=== PATIENT | female | born 1985 | race Caucasian/White ===

== ENCOUNTER → 2019-04-06 14:23 | Outpatient (CLI) | payer OTHER, SELFPAY | PROVIDERS: Family Provider Advanced Practice Midwife | DX: Z23 Encounter for immunization (principal) | CPT/HCPCS: 90471; 90686 ==

== ENCOUNTER → 2019-07-01 10:25 | Outpatient (CLI) | payer OTHER, SELFPAY ==
[2019-07-01 11:14] LABS: Influenza A - CEPHEID Flu A NEGATIVE (NEGATIVE); Influenza B - CEPHEID Flu B NEGATIVE (NEGATIVE)
== END ==
PROVIDERS: Family Provider Advanced Practice Midwife; Visit Provider Nurse Practitioner
DX: R68.89 Other general symptoms and signs (principal); J02.9 Acute pharyngitis, unspecified
CPT/HCPCS: 87070; 87147; 87502

== ENCOUNTER → 2019-09-18 12:54 | Outpatient (CLI) | payer OTHER, SELFPAY ==
[2019-09-18 13:48] LABS: Influenza A - CEPHEID Flu A NEGATIVE (NEGATIVE); Influenza B - CEPHEID Flu B NEGATIVE (NEGATIVE)
[2019-09-25 23:02] LABS: COVID19 Sendout Not Detected (Not Detected)
== END ==
PROVIDERS: Family Provider Advanced Practice Midwife; Visit Provider Nurse Practitioner
DX: J22 Unspecified acute lower respiratory infection (principal)
CPT/HCPCS: 87502; 87635

== ENCOUNTER → 2019-09-26 17:10 | Outpatient (CLI) | payer OTHER, SELFPAY ==
[2019-09-26 17:29] LABS: Monotest Negative (Negative)
== END ==
PROVIDERS: Family Provider Advanced Practice Midwife; Referring Provider Physician Assistant; Visit Provider Physician Assistant
DX: R53.83 Other fatigue (principal)
CPT/HCPCS: 36415; 86318

== ENCOUNTER 2019-12-21 08:46 | Emergency (ER) | payer OTHER, SELFPAY ==
[2019-12-21 08:46] VITALS: BP 103/63; PULSE 88; RESP 14; TEMP 36.8; O2SAT 100; BMI 22.7
--- NOTE | 2019-12-21 08:52 | ED.GENADULT ---
HPI - General Adult General Chief complaint: Extremity Problem,Nontraumatic Stated complaint: inflamed right middle toe Time Seen by Provider: 12/21/19 08:51 Source: patient Mode of arrival: Ambulatory Limitations: no limitations History of Present Illness HPI narrative: 34-year-old female here for evaluation of a red/inflamed right 3rd/middle toe. She states that it has been going on for the past couple days. No fevers. No specific trauma. She has been ambulatory. No history of gout. Did outline it with a pen yesterday to see if the redness was spreading. Has not tried anything for the symptoms. Related Data Home Medications Medication Instructions Recorded Confirmed cholecalciferol (vitamin D3) PO 07/01/19 09/26/19 Previous Rx's Medication Instructions Recorded amoxicillin 875 mg-potassium 1 tab PO BID #20 tab 09/28/19 clavulanate 125 mg tablet Allergies Allergy/AdvReac Type Severity Reaction Status Date / Time No Known Drug Allergies Allergy Verified 09/26/19 16:46 Review of Systems Constitutional Constitutional: Denies fever(s) and Denies headache(s) ENT Ears, Nose, Mouth, and Throat: Denies headache(s) Musculoskeletal Comments: Right middle toe pain Integumentary/Breasts Comments: Redness to the right middle toe Neurologic Neurologic: Denies headache(s) and Denies sensory deficit Hematologic/Lymphatic Hematologic/Lymphatic: Denies easy bleeding and Denies easy bruising Patient History Medical History Psoriasis (Acute) Social History Smoking Status: Never smoker Smoking Status: Never smoker Exam Initial Vital Signs Initial Vital Signs: Vital Signs Temperature 98.3 F 12/21/19 08:46 Pulse Rate 88 12/21/19 08:46 Respiratory Rate 14 12/21/19 08:46 Blood Pressure 103/63 12/21/19 08:46 Pulse Oximetry 100 12/21/19 08:46 Const General: cooperative and comfortable Skin Other: Redness on the dorsum of the right 3rd toe. Extends from the MTP to the D IP joint. Neuro Sensory Exam: no sensory deficits noted Extrem Other: Does not seem to have any tenderness with movement of the MTP joint of the 3rd toe. Does have tenderness to palpation of the PIP joint. Course Orders Ordered: ED Orders 12/21/19 08:57 XR toe RT min 2V Stat 12/21/19 09:55 Basic Metabolic Panel Stat C-Reactive Protein Quant Stat Complete Blood Count AUTO DIFF Stat Erythrocyte Sedimentation Rate Stat Uric Acid Stat Vital Signs Vital signs: Vital Signs - 8 hr 12/21/19 08:46 Temperature 98.3 F Pulse Rate 88 Respiratory Rate 14 Blood Pressure 103/63 Pulse Oximetry 100 Medical Decision Making Lab Data Lab results reviewed: Yes I reviewed the patient's lab results. Result diagrams: 12/21/19 09:55 12/21/19 09:55 Labs: Lab Results 12/21/19 12/21/19 12/21/19 Range/Units 09:55 09:55 09:55 WBC 6.2 (4.5-11.0) X10^3/uL RBC 4.23 (4.0-5.2) X10^6/uL Hgb 13.6 (12.0-16.0) g/dL Hct 39.7 (36-46) % MCV 93.8 (80-100) fL MCH 32.1 (26-34) PG MCHC 34.2 (30-36) % RDW 13.6 (11.6-14.8) % Plt Count 286 (150-400) X10^3/uL Neut % (Auto) 56.2 (50-75) % Lymph % (Auto) 29.3 (25-40) % [place] % (Auto) 8.9 (3-14) % Eos % (Auto) 4.3 H (2-4) % Baso % (Auto) 1.3 (0-2) % Neut # (Auto) 3500 (6115-2907) /uL Lymph # (Auto) 1800 (3837-1937) /uL [place] # (Auto) 500 (0-900) /uL Eos # (Auto) 300 (0-450) /uL Baso # (Auto) 100 (0-100) /uL ESR 7 (0-20) MM/HR Sodium 138 (137-145) mmol/L Potassium 4.2 (3.4-5.1) mmol/L Chloride 104 (98-107) mmol/L Carbon Dioxide 26 (22-32) mmol/L BUN 11 (7-17) mg/dL Creatinine 0.57 (0.52-1.04) mg/dL Estimated GFR > 60.0 (>60) mL/min BUN/Creatinine Ratio 19.3 (6-22) Glucose 95 (70-100) mg/dL Uric Acid 3.0 (2.5-6.2) mg/dL Calcium 9.5 (8.4-10.2) mg/dL C-Reactive Protein < 0.5 (<1.0) mg/dL Imaging Data Extremity x-ray #1: Radiologist's Impression: [address] [address] XRay Report Signed Patient: Claudia Tenorio [facility]#: [id number] : 1985Acct:[id number] Age/Sex: 34 / FDate of Service: 12/21/19 Loc: ED Accession Number: [id number] Procedure: XR toe RT min 2V Ordering Provider: Dandre Ann D.O. PROCEDURE: XR TOE RT MIN 2V INDICATIONS: 3rd (middle toe) red and inflammed TECHNIQUE: 3 views of the third toe(s) acquired. COMPARISON: None. FINDINGS: Bones: No fractures or dislocations. No suspicious bony lesions. Soft tissues: No suspicious soft tissue densities but there is soft tissue swelling distally without underlying osteomyelitis identified. IMPRESSION: Soft tissue swelling distal third digit, without underlying fracture, foreign body or evidence of osteomyelitis. Dictated by: José Rose M.D. on 12/21/2019 at 8:20 Approved by: José Rose M.D. on 12/21/2019 at 8:22 Discharge Plan Departure Patient Disposition: Home Clinical Impression: Pain in toe of right foot Discharge Date/Time: 12/21/19 10:10 Instructions: How To Perform RICE (Rest, Ice, Compress, Elevate) Activity Restrictions/Additional Instructions: Use the ortho shoe as needed. You can contact the health clinical resource manager here at the hospital at [phone]. They can help you with establishing a primary provider. Return to the emergency department for any new or worsening symptoms Prescriptions: No Action cholecalciferol (vitamin D3) PO RF: 0 amoxicillin-pot clavulanate [Augmentin] 875-125 mg tablet 1 tab PO BID Qty: 20 RF: 0
--- NOTE | 2019-12-21 08:57 | DI.RAD.S_ITS ---
PROCEDURE: XR TOE RT MIN 2V INDICATIONS: 3rd (middle toe) red and inflammed TECHNIQUE: 3 views of the third toe(s) acquired. COMPARISON: None. FINDINGS: Bones: No fractures or dislocations. No suspicious bony lesions. Soft tissues: No suspicious soft tissue densities but there is soft tissue swelling distally without underlying osteomyelitis identified. IMPRESSION: Soft tissue swelling distal third digit, without underlying fracture, foreign body or evidence of osteomyelitis. Dictated by: José Rose M.D. on 12/21/2019 at 8:20 Approved by: José Rose M.D. on 12/21/2019 at 8:22
[2019-12-21 10:10] LABS: Add Manual Diff / Slide Review NO; Basophils Absolute Auto 100 /uL (0-100); Basophils Percent Auto 1.3 % (0-2); Eosinophils Absolute Auto 300 /uL (0-450); Eosinophils Percent Auto 4.3 % (2-4); Hematocrit 39.7 % (36-46); Hemoglobin 13.6 g/dL (12.0-16.0); Lymphocytes Absolute Auto 1800 /uL (1100-4500); Lymphocytes Percent Auto 29.3 % (25-40); Mean Corpuscular HGB Conc 34.2 % (30-36); Mean Corpuscular Hemoglobin 32.1 PG (26-34); Mean Corpuscular Volume 93.8 fL (80-100); Monocytes Absolute Auto 500 /uL (0-900); Monocytes Percent Auto 8.9 % (3-14); Neutrophils Absolute Auto 3500 /uL (1500-7000); Neutrophils Percent Auto 56.2 % (50-75); Platelet Count 286 X10^3/uL (150-400); Red Blood Cell Count 4.23 X10^6/uL (4.0-5.2); Red Cell Distribution Width 13.6 % (11.6-14.8); White Blood Cell Count 6.2 X10^3/uL (4.5-11.0)
[2019-12-21 10:25] LABS: BUN Creatinine Ratio 19.3 (6-22); Blood Urea Nitrogen 11 mg/dL (7-17); Calcium 9.5 mg/dL (8.4-10.2); Carbon Dioxide 26 mmol/L (22-32); Chloride 104 mmol/L (98-107); Estimated Glomerular Filt Rate > 60.0 mL/min (>60); Glucose 95 mg/dL (70-100); HEMOLYSIS < 15 (0-50); Potassium 4.2 mmol/L (3.4-5.1); Sodium 138 mmol/L (137-145)
[2019-12-21 10:30] LABS: C-Reactive Protein Quant < 0.5 mg/dL (<1.0)
[2019-12-21 10:43] LABS: Erythrocyte Sedimentation Rate 7 MM/HR (0-20)
--- NOTE | 2019-12-21 13:22 | PC.NURSE ---
Pt given copy of her labs per Dr Ann
== END 2019-12-21 10:10 | disposition home or self-care (01) ==
PROVIDERS: Emergency Provider Emergency Medicine; Family Provider Advanced Practice Midwife
DX: M79.671 Pain in right foot (principal)
CPT/HCPCS: 36415; 73660; 80048; 84550; 85025; 85651; 86140; 99284

== ENCOUNTER → 2020-01-26 07:36 | Outpatient (CLI) | payer OTHER, SELFPAY ==
[2020-01-26 08:29] LABS: Cholesterol 182 mg/dL (140-199); HDL Cholesterol 42 mg/dL (40-60); LDL Cholesterol Calculated 128 mg/dL (<100); Triglycerides 58 mg/dL (35-150)
[2020-01-26 08:33] LABS: Hemoglobin A1C% w Est Avg Glu 5.1 % (4.0-6.0)
[2020-01-26 08:49] LABS: Vitamin D 25 Hydroxy (D3) 46.8 ng/mL (30.0-100.0)
[2020-01-26 09:04] LABS: TSH w/ Reflex to FT4 0.78 uIU/mL (0.47-4.68)
[2020-01-27 07:09] LABS: Insulin Level Total 6.2 uIU/mL (2.6-24.9)
== END ==
PROVIDERS: Family Provider Advanced Practice Midwife; Referring Provider Registered Nurse Diabetes Educator; Visit Provider Registered Nurse Diabetes Educator
DX: Z13.220 Encounter for screening for lipoid disorders (principal); Z13.29 Encounter for screening for other suspected endocrine disorder; Z76.89 Persons encountering health services in other specified circumstances; Z86.32 Personal history of gestational diabetes
CPT/HCPCS: 36415; 80061; 82306; 83036; 83525; 84443

== ENCOUNTER → 2020-03-17 16:40 | Outpatient (CLI) | payer OTHER, SELFPAY ==
[2020-03-17 18:06] LABS: Add Manual Diff / Slide Review NO; Basophils Absolute Auto 100 /uL (0-100); Basophils Percent Auto 1.3 % (0-2); Eosinophils Absolute Auto 300 /uL (0-450); Hematocrit 39.2 % (36-46); Hemoglobin 13.3 g/dL (12.0-16.0); Lymphocytes Absolute Auto 2500 /uL (1100-4500); Lymphocytes Percent Auto 38.6 % (25-40); Mean Corpuscular Hemoglobin 31.9 PG (26-34); Mean Corpuscular Volume 93.9 fL (80-100); Monocytes Absolute Auto 400 /uL (0-900); Monocytes Percent Auto 6.7 % (3-14); Neutrophils Absolute Auto 3300 /uL (1500-7000); Neutrophils Percent Auto 49.4 % (50-75); Platelet Count 308 X10^3/uL (150-400); Red Blood Cell Count 4.18 X10^6/uL (4.0-5.2); White Blood Cell Count 6.6 X10^3/uL (4.5-11.0)
[2020-03-17 18:15] LABS: Alanine Aminotransferase 17 IU/L (<35); Albumin 4.7 g/dL (3.5-5.0); Albumin Globulin Ratio 1.5 (1.0-2.8); Alkaline Phosphatase 44 U/L (38-126); Aspartate Aminotransferase 22 IU/L (14-36); BUN Creatinine Ratio 16.4 (6-22); Bilirubin Total 0.6 mg/dL (0.2-1.3); Blood Urea Nitrogen 10 mg/dL (7-17); Calcium 9.6 mg/dL (8.4-10.2); Carbon Dioxide 29 mmol/L (22-32); Chloride 100 mmol/L (98-107); Estimated Glomerular Filt Rate > 60.0 mL/min (>60); Globulin 3.2 g/dL (1.7-4.1); Glucose 83 mg/dL (70-100); HEMOLYSIS < 15 (0-50); Potassium 5.2 mmol/L (3.4-5.1); Sodium 138 mmol/L (137-145); Total Protein 7.9 g/dL (6.3-8.2)
[2020-03-17 18:33] LABS: Prolactin 7.6 ng/mL (3.0-18.6)
[2020-03-17 18:42] LABS: Follicle Stimulating Hormone 7.42 mIU/mL; Luteinizing Hormone 2.55 mIU/mL
[2020-03-17 18:56] LABS: TSH w/ Reflex to FT4 0.46 uIU/mL (0.47-4.68)
[2020-03-17 19:41] LABS: Appearance Urine UA CLEAR; Bilirubin Urine UA NEGATIVE (NEGATIVE); Color Urine UA YELLOW; Glucose Urine UA NEGATIVE (Negative); Ketones Urine UA 1+ (NEGATIVE); Leukocyte Esterase Urine UA NEGATIVE (NEGATIVE); Nitrite Urine UA NEGATIVE (Negative); Occult Blood Urine UA 3+ (Negative); Protein Urine UA NEGATIVE (Negative); Urobilinogen Urine UA 0.2 E.U./dL (0.2); pH Urine UA 6.5 (4.5-8.0)
[2020-03-17 19:42] LABS: Bacteria Urine None Seen
[2020-03-17 19:53] LABS: Culture Indicated Urine Cult Not Indicated; RBC Urine 1-5/HPF (0-5/HPF); Squamous Epithelial Cell Urine 0-1 /HPF (0-5/HPF); WBC Urine 0-1/HPF (0-5/HPF)
[2020-03-17 19:56] LABS: Free T4, Direct Thyroxine 1.66 ng/dL (0.78-2.19)
== END ==
PROVIDERS: Family Provider Advanced Practice Midwife; PCP Registered Nurse Diabetes Educator; Referring Provider Registered Nurse; Visit Provider Registered Nurse
DX: R10.2 Pelvic and perineal pain (principal); Z84.2 Family history of other diseases of the genitourinary system
CPT/HCPCS: 36415; 80053; 81003; 81015; 83001; 83002; 84146; 84439; 84443; 85025

== ENCOUNTER 2020-03-20 13:28 | Emergency (ER) | payer OTHER, SELFPAY ==
[2020-03-20] VITALS (13 sets, daily range): BP systolic 115–147; BP diastolic 76–92; PULSE 71–115; RESP 6–22; TEMP 37.1; O2SAT 93–100; BMI 22.5
[2020-03-20 14:00] LABS: Add Manual Diff / Slide Review NO; Basophils Absolute Auto 100 /uL (0-100); Basophils Percent Auto 1.2 % (0-2); Eosinophils Absolute Auto 200 /uL (0-450); Eosinophils Percent Auto 2.3 % (2-4); Hemoglobin 13.8 g/dL (12.0-16.0); Lymphocytes Absolute Auto 2200 /uL (1100-4500); Lymphocytes Percent Auto 29.8 % (25-40); Mean Corpuscular HGB Conc 33.6 % (30-36); Mean Corpuscular Hemoglobin 31.6 PG (26-34); Mean Corpuscular Volume 94.1 fL (80-100); Monocytes Absolute Auto 400 /uL (0-900); Monocytes Percent Auto 6.1 % (3-14); Neutrophils Absolute Auto 4400 /uL (1500-7000); Neutrophils Percent Auto 60.6 % (50-75); Platelet Count 318 X10^3/uL (150-400); Red Blood Cell Count 4.36 X10^6/uL (4.0-5.2); Red Cell Distribution Width 12.7 % (11.6-14.8); White Blood Cell Count 7.2 X10^3/uL (4.5-11.0)
[2020-03-20 14:06] LABS: INR 1.2 (0.9-1.3); Prothrombin Time 13.3 SECONDS (10.1-12.7)
[2020-03-20 14:09] LABS: PTT Partial Thromboplastin Tim 33 SECONDS (26.4-36.2)
[2020-03-20 14:10] LABS: Alanine Aminotransferase 19 IU/L (<35); Albumin 4.9 g/dL (3.5-5.0); Albumin Globulin Ratio 1.3 (1.0-2.8); Alkaline Phosphatase 42 U/L (38-126); Aspartate Aminotransferase 24 IU/L (14-36); BUN Creatinine Ratio 13.1 (6-22); Bilirubin Total 0.5 mg/dL (0.2-1.3); Blood Urea Nitrogen 11 mg/dL (7-17); Carbon Dioxide 28 mmol/L (22-32); Chloride 104 mmol/L (98-107); Estimated Glomerular Filt Rate > 60.0 mL/min (>60); Globulin 3.7 g/dL (1.7-4.1); Glucose 104 mg/dL (70-100); HEMOLYSIS < 15 (0-50); Lipase 104 U/L (23-300); Potassium 3.7 mmol/L (3.4-5.1); Sodium 142 mmol/L (137-145); Total Protein 8.6 g/dL (6.3-8.2)
[2020-03-20 14:20] LABS: Bacteria Urine None Seen; RBC Urine None Seen (0-5/HPF)
[2020-03-20 14:35] LABS: Culture Indicated Urine Cult Not Indicated; Mucus Urine 1+ (Negative); Squamous Epithelial Cell Urine 0-1 /HPF (0-5/HPF); WBC Urine 0-1/HPF (0-5/HPF)
--- NOTE | 2020-03-20 15:20 | ED.ABDPAIN ---
HPI - Abdominal Pain General Chief Complaint: Abdominal Pain Stated Complaint: Left Abd Pain Time Seen by Provider: 03/20/20 15:09 Source: patient Mode of arrival: Ambulatory Limitations: no limitations History of Present Illness HPI narrative: The patient describes left lower abdomen suprapubic abdominal discomfort. She feels like she is expanding. She is uncomfortable. Her appetite is normal. She has no nausea, vomiting, diarrhea or constipation. She denies dysuria hematuria. She is drinking adequate fluids, she has normal urine output. She has an IUD in place x3 years. She developed symptoms about 3 weeks ago after last menstrual cycle, the abdominal discomfort seems to be expanding since then. She has no vaginal discharge. She does have mild discomfort with intercourse, but this is been going on since the IUD was placed. She has no associated back pain. She has no URI symptoms. She has no chest discomfort, cough or dyspnea. She has no fever. Related Data Home Medications Medication Instructions Recorded Confirmed cholecalciferol (vitamin D3) PO 07/01/19 03/17/20 copper 380 square mm intrauterine INTRAUTERINE 01/05/20 03/17/20 device Previous Rx's Medication Instructions Recorded calcipotriene 0.005 % topical cream 1 applictn TOP BID #60 gram 01/05/20 clobetasol 0.05 % scalp solution 1 applictn TOP BID #50 ml 01/05/20 Allergies Allergy/AdvReac Type Severity Reaction Status Date / Time No Known Drug Allergies Allergy Verified 03/17/20 15:51 Review of Systems Review of Systems ROS Unobtainable: All systems reviewed & are unremarkable except as noted in HPI and below Constitutional Constitutional: Denies chills, Denies fever(s), Denies headache(s), Denies lethargy and Denies weakness ENT Ears, Nose, Mouth, and Throat: Denies headache(s) Cardiovascular Cardiovascular: Denies chest pain, Denies irregular heart rhythm, Denies lightheadedness and Denies dyspnea Respiratory Respiratory: Denies cough, Denies dyspnea and Denies wheezing Gastrointestinal Gastrointestinal: Reports as per HPI Genitourinary Genitourinary: Reports as per HPI and Denies dysuria Genitourinary: Reports as per HPI and Denies dysuria Musculoskeletal Musculoskeletal: Denies back pain Integumentary/Breasts Skin/Breast: Denies pruritus, Denies erythema and Denies rash Neurologic Neurologic: Denies headache(s) and Denies weakness Allergic/Immunologic Allergic/Immunologic: Denies wheezing Patient History Medical History (Updated 03/20/20 @ 17:59 by Franco Tirado MD) History of gestational diabetes (Acute) IUD (intrauterine device) in place (Acute) Psoriasis (Acute) Social History Smoking Status: Never smoker alcohol intake: current Smoking Status: Never smoker alcohol intake frequency: 0-2 drinks per day Substance Use Type: does not use Exam Initial Vital Signs Initial Vital Signs: Vital Signs Temperature 98.8 F 03/20/20 13:33 Pulse Rate 105 H 03/20/20 13:33 Respiratory Rate 16 03/20/20 13:33 Blood Pressure 147/92 H 03/20/20 13:33 Pulse Oximetry 100 03/20/20 13:33 Const General: cooperative and well developed Nutritional Appearance: well nourished Eyes Sclera: sclerae normal (No icterus) Resp Auscultation: clear to auscultation bilaterally Cardio Rate: regular rate Rhythm: regular rhythm Heart Sounds: S1 normal, S2 normal, no click, no gallops, no murmurs and no rubs Pulses: normal peripheral pulses GI Other: Mild LLQ and suprapubic discomfort. No masses. No distention. Normal bowel sounds. Back/Spine/Pelvis Back: No CVA tenderness Skin General: no rashes or lesions noted and No petechiae Neuro General: patient alert, patient oriented x3, gait normal and no focal motor deficits Speech: speech normal Extrem General: full ROM, no clubbing, cyanosis or edema, no pedal edema and no calf tenderness Psych Appearance: grossly normal Mental Status: mental status grossly normal Course Course Course Narrative: On repeat evaluation the patient has ongoing, vague LLQ pain. Lab evaluation and pelvic ultrasound are benign and reassuring. I discussed these findings with the patient. We discussed an abdominal/pelvis CT. She has decided to not proceed with that evaluation. Instead I am recommending a high-fiber high fluid diet, and follow-up with her doctor in about 2 weeks. Orders Ordered: ED Orders 03/20/20 13:45 Complete Blood Count AUTO DIFF Stat Comprehensive Metabolic Panel Stat Lipase Stat Partial Thromboplastin Time Stat Prothrombin Time INR Stat 03/20/20 14:11 Urine Microscopic Stat 03/20/20 15:29 US pelvic complete Stat Discontinued Medications Ketorolac Tromethamine (Toradol) 30 mg IV NOW ONE Stop: 03/20/20 15:29 Last Admin: 03/20/20 15:32 Dose: 30 mg Documented by: KATHE Vital Signs Vital signs: Vital Signs - 8 hr 03/20/20 13:33 03/20/20 13:41 03/20/20 13:49 Temperature 98.8 F 98.8 F Pulse Rate 105 H 115 H 113 H Respiratory Rate 16 16 Blood Pressure 147/92 H 115/78 Pulse Oximetry 100 99 100 03/20/20 14:00 03/20/20 14:30 03/20/20 15:00 Temperature Pulse Rate 97 H 90 87 Respiratory Rate 10 L 14 17 Blood Pressure 133/88 124/76 Pulse Oximetry 100 99 99 03/20/20 15:01 03/20/20 15:30 03/20/20 16:01 Temperature Pulse Rate 88 82 79 Respiratory Rate 6 L 6 L Blood Pressure 126/80 127/82 Pulse Oximetry 99 98 93 03/20/20 16:30 03/20/20 17:00 03/20/20 17:30 Temperature Pulse Rate 89 91 H 71 Respiratory Rate 19 20 17 Blood Pressure Pulse Oximetry 99 98 99 03/20/20 17:31 Temperature Pulse Rate 83 Respiratory Rate 22 Blood Pressure 128/78 Pulse Oximetry 99 MDM - Abdominal Pain Lab Data Result diagrams: 03/20/20 13:45 03/20/20 13:45 Labs: Lab Results 03/20/20 03/20/20 03/20/20 Range/Units 13:45 13:45 13:45 WBC 7.2 (4.5-11.0) X10^3/uL RBC 4.36 (4.0-5.2) X10^6/uL Hgb 13.8 (12.0-16.0) g/dL Hct 41.0 (36-46) % MCV 94.1 (80-100) fL MCH 31.6 (26-34) PG MCHC 33.6 (30-36) % RDW 12.7 (11.6-14.8) % Plt Count 318 (150-400) X10^3/uL Neut % (Auto) 60.6 (50-75) % Lymph % (Auto) 29.8 (25-40) % [place] % (Auto) 6.1 (3-14) % Eos % (Auto) 2.3 (2-4) % Baso % (Auto) 1.2 (0-2) % Neut # (Auto) 4400 (9993-9817) /uL Lymph # (Auto) 2200 (8680-7102) /uL [place] # (Auto) 400 (0-900) /uL Eos # (Auto) 200 (0-450) /uL Baso # (Auto) 100 (0-100) /uL PT 13.3 H (10.1-12.7) SECONDS INR 1.2 (0.9-1.3) APTT 33 (26.4-36.2) SECONDS Sodium 142 (137-145) mmol/L Potassium 3.7 D (3.4-5.1) mmol/L Chloride 104 (98-107) mmol/L Carbon Dioxide 28 (22-32) mmol/L BUN 11 (7-17) mg/dL Creatinine 0.84 (0.52-1.04) mg/dL Estimated GFR > 60.0 (>60) mL/min BUN/Creatinine Ratio 13.1 (6-22) Glucose 104 H (70-100) mg/dL Calcium 9.0 (8.4-10.2) mg/dL Total Bilirubin 0.5 (0.2-1.3) mg/dL AST 24 (14-36) IU/L ALT 19 (<35) IU/L Alkaline Phosphatase 42 (38-126) U/L Total Protein 8.6 H (6.3-8.2) g/dL Albumin 4.9 (3.5-5.0) g/dL Globulin 3.7 (1.7-4.1) g/dL Albumin/Globulin Ratio 1.3 (1.0-2.8) Lipase 104 (23-300) U/L Urine RBC (0-5/HPF) Urine WBC (0-5/HPF) Ur Squamous Epith Cells (0-5/HPF) Urine Bacteria (None) Urine Mucus (Negative) Ur Culture Indicated? 03/20/20 Range/Units 14:11 WBC (4.5-11.0) X10^3/uL RBC (4.0-5.2) X10^6/uL Hgb (12.0-16.0) g/dL Hct (36-46) % MCV (80-100) fL MCH (26-34) PG MCHC (30-36) % RDW (11.6-14.8) % Plt Count (150-400) X10^3/uL Neut % (Auto) (50-75) % Lymph % (Auto) (25-40) % [place] % (Auto) (3-14) % Eos % (Auto) (2-4) % Baso % (Auto) (0-2) % Neut # (Auto) (3708-1554) /uL Lymph # (Auto) (2861-9762) /uL [place] # (Auto) (0-900) /uL Eos # (Auto) (0-450) /uL Baso # (Auto) (0-100) /uL PT (10.1-12.7) SECONDS INR (0.9-1.3) APTT (26.4-36.2) SECONDS Sodium (137-145) mmol/L Potassium (3.4-5.1) mmol/L Chloride (98-107) mmol/L Carbon Dioxide (22-32) mmol/L BUN (7-17) mg/dL Creatinine (0.52-1.04) mg/dL Estimated GFR (>60) mL/min BUN/Creatinine Ratio (6-22) Glucose (70-100) mg/dL Calcium (8.4-10.2) mg/dL Total Bilirubin (0.2-1.3) mg/dL AST (14-36) IU/L ALT (<35) IU/L Alkaline Phosphatase (38-126) U/L Total Protein (6.3-8.2) g/dL Albumin (3.5-5.0) g/dL Globulin (1.7-4.1) g/dL Albumin/Globulin Ratio (1.0-2.8) Lipase (23-300) U/L Urine RBC None seen (0-5/HPF) Urine WBC 0-1/hpf (0-5/HPF) Ur Squamous Epith Cells 0-1 /hpf (0-5/HPF) Urine Bacteria None seen (None) Urine Mucus 1+ H (Negative) Ur Culture Indicated? Cult not indicated Point of care testing: Point of Care Testing Test Results Negative Urine Dip Bedside Urine Glucose 100 mg/dl Bedside Urine Bilirubin - Negative Bedside Urine Ketone +/- 5 Urine Specific [place] 1.015 Bedside Urine Occult Blood - Negative Bedside Urine pH 7.0 Bedside Urine Protein +/- 15 Bedside Urine Urobilinogen - Negative Bedside Urine Nitrite - Negative Bedside Urine Leukocytes +/- 15 Esterase Imaging Data Pelvic US: Radiologist's Impression: Normal pelvic ultrasound. IUD is in the correct position. Discharge Plan Departure Patient Disposition: Home Clinical Impression: Abdominal pain, acute, left lower quadrant Instructions: DI for Abdominal Pain-Adult Activity Restrictions/Additional Instructions: Your discomfort is likely related to your colon. I would recommend a high-fiber, high water diet. Recheck with your doctor in about 2 weeks. Return the ER if you develop increasing pain or fever. Prescriptions: No Action cholecalciferol (vitamin D3) PO RF: 0 ParaGard T 380A 380 square mm intrauterine device intrauterine RF: 0 calcipotriene 0.005 % cream 1 applictn TOP BID Qty: 60 RF: 3 clobetasol 0.05 % solution 1 applictn TOP BID Qty: 50 RF: 1 Referrals: Jesús Hernandez ARNP [Primary Care Provider] -
--- NOTE | 2020-03-20 15:29 | DI.US.S_ITS ---
PROCEDURE: US PELVIC COMPLETE INDICATIONS: LLQ PAIN. SUPRAPUBIC PAIN. ONSET AFTER MENSES. TECHNIQUE: Real-time scanning was performed of the pelvic organs, with image documentation. Additional endovaginal scanning was necessary due to incomplete visualization of the adnexal and endometrial structures by transabdominal scanning. COMPARISON: None. FINDINGS: Transabdominal scanning: Limited scanning through the kidneys shows no hydronephrosis. No pathologic free abdominal or pelvic fluid. Endovaginal scanning: Uterus: Uterus is normal in size at 7.6 x 4.2 x 6.2 cm. The endometrium measures 3.9 mm in combined thickness. Nabothian cysts are noted. IUD is in appropriate position. Ovaries: Right ovary measures 33 x 22 x 26 mm. Left ovary measures 42 x 24 x 22 mm. REFERENCE NUMBERS DELETE FROM FINAL REPORT Endometrial thickness thresholds for recommending bx: * >5 mm cutoff in post-menopausal women with bleeding, with or without HRT. * 8 mm vs 11 mm cutoff (no consensus) in post-menopausal women without bleeding, with or without HRT/tamoxifen therapy. * 18 mm cutoff in pre-menopausal women (after first repeating US in proliferative phase). * Post-endometrial ablation thickness >3 mm is associated with bleeding from persistent or regenerated endometrium. Diagnostic criteria for retained products of conception: * Endometrial thickening of 10 mm or more: 80% sensitive, but only 20% specific. Less than 10 mm thick has high negative predictive value for retained products. * Discrete endometrial or intrauterine mass: 63-80% positive predicted value for RPOC. * Color Doppler: RPOC has variable vascularity. If not vascular flow, ddx of blood clot vs avascular RPOC. Even minimal blood flow increases positive predictive value to 90%. Normal ovarian volumes: * At menarche: 4.2 +/- 2 mL * Pre-menopause: 9 +/- 6 mL; up to 20 mL is normal. * Post-menopause: 3 +/- 2 mL; up to 10 mL is normal. Management of incidental adnexal findings on CT/MRI: ACR White Paper. * Premenopausal: can use 50 years of age as cutoff if LMP not known, to include perimenopausal women. Early post-menopause: within 5 years of LMP, or 50-55 years of age. Late menopause: >5 years from LMP, or >55 years of age. * Exclusions: o Normal findings: hypodense ovary on CT, crenulated corpus luteum, asymmetric ovary (within 95% confidence interval) with normal shape. o Unimportant findings: calcifications w/o asscd mass lesion, previously characterized by other imaging, documented stability for >2 years. * Benign-appearing cysts: oval or round, unilocular with uniform contents (layering blood ok if premenopausal), regular or imperceptible wall, no solid components or mural nodule, and <10 cm in diameter. o Premenopausal: 5 cm or less, no followup needed. >5 cm: recommend 6-12 week US followup. o Early post-menopause: 3 cm or less, no followup needed. 3-5 cm: recommend 6-12 week US followup. >5 cm: US characterization needed. o Late post-menopause: 3 cm or less, no followup needed. > 3cm: US characterization needed. Can also use a threshold value of 1 cm. * Probably benign cysts: angulated margins, not round or oval, poorly imaged. o Premenopausal: 3 cm or less, no followup needed. 3-5 cm: 6-12 week US followup. 5 cm: US characterization needed. o Early post-menopause: 3 cm or less, no followup needed. > 3cm: US characterization. o Late post-menopause: 1 cm or less, no followup needed. > 1cm: US characterization. * Other diagnostic features: include solid component, mural nodule, septations, hyperdense, laying blood if post-menopause. o Non-specific features: US characterization needed. o Probably diagnostic features: manage as appropriate. Management of asymptomatic adnexal cysts on US: SRU Consensus Statement * Normal findings: o Dominant follicles 3 cm or less in reproductive age female. o Corpus luteum 3 cm or less in reproductive age female (thick hypervascular coronel, +/- internal echoes, +/- crenulated appearance). o Simple cysts 1 cm or less in postmenopausal females. * Simple cysts OR thin walled cysts with single thin septation/focal wall calcif: o Reproductive age, 5 cm or less: no followup needed. Greater than 5 cm to 7 cm: yearly followup US. o Postmenopausal: >1 cm to 7 cm: yearly followup US. o Any age and size >7 cm: pelvic MRI or surgical consult. * Hemorrhagic cysts: reticular pattern, no internal flow, +/- solid area with concave margins. o Reproductive age, 5 cm or less: no followup needed. Greater than 5 cm: 6-12 week followup US. o Early postmenopause, any size: 6-12 week followup US. o Last postmenopause: consider surgical consult. * Endometrioma: homogeneous internal echoes, +/- echogenic foci in wall. o Any age: 6-12 week followup US. If not surgically removed, yearly followup. * Dermoid: focal or diffuse hyperechoic component, hyperechoic lines/dots, acoustic shadowing. o Yearly followup if not surgically removed. * Lesions with findings suggestive of, but not classic for, hemorrhagic cyst, endometrioma, or dermoid: o Reproductive age: 6-12 week followup US. If unchanged, consider MRI. If MRI does not confirm endometrioma or dermoid: surgical consult. o Postmenopause: consider surgical consult. * Cysts with multiple thin septations or mural nodule without flow: o Probably benign, but consider surgical consult. * Cysts with thick irregular septations or mural nodule with flow: o Worrisome for malignancy, consider surgical consult. Polycystic ovarian syndrome reference text. Androgen Excess and PCOS Society criteria (2009): o Hyperandrogenism (hirsuitism or hyperandrogenemia) AND o Ovarian dysfunction (oligo-/anovulation OR polycystic ovaries). [place] criteria for polycystic ovaries: only 1 ovary meeting these criteria is sufficient. o One or both ovaries demonstrate 12 or more follicles 2-9 mm in diameter OR o Ovarian volume exceeds 10 cubic cm by ellipsoid formula. Incidental polycystic ovaries on US: only 5-10% of such women will have classic symptoms of PCOS. Reporting parameters: o Age, LMP. o Menstrual history: regular menstruating women whould be scanned during early follicular phase (day 3-5). Oligo- or amenorrheic women may be scanned at random, or between days 3-5 after progesterone induced bleeding. o Medications: oral contraceptives, leuoprolide, fertility medications. Ovary findings: o number and size range of follicles. o Measure largest follicle in 3 axes, and calculate average diameter. o Any follicle >10 mm or corpus luteum should prompt repeat US during next menstrual cycle. o Ovarian volumes using simplified ellipsoid formula. Sample Impression text: o Findings meet the [place] definition of polycystic ovaries. In the absence of ovulatory dysfunction or clinically/biochemically diagnosed hyperandrogenism, findings are non specific and do not indicate the presence of polycystic ovarian syndrome. o For women with ovulatory dysfunction: Findings meet the [place] 2003 definition for polycystic ovaries. Findings and the clinical history of ovulatory dysfunction in the absence of hyperandrogenism satisfy [place] criteria, but not the Androgen Excess and PCOS Society guidelines, for the diagnosis of PCOS. Further clinical evaluation is warranted. IMPRESSION: 1. IUD in appropriate position. Dictated by: Kelsi Cohen M.D. on 03/20/2020 at 16:16 Approved by: Kelsi Cohen M.D. on 03/20/2020 at 16:20
[2020-03-20] MEDS: KETOROLAC 60 MG/2 ML VIAL 30 MG IV (15:32)
== END 2020-03-20 18:03 | disposition home or self-care (01) ==
PROVIDERS: Emergency Provider Emergency Medicine; Family Provider Advanced Practice Midwife; PCP Registered Nurse Diabetes Educator
DX: R10.32 Left lower quadrant pain (principal); Z97.5 Presence of (intrauterine) contraceptive device
CPT/HCPCS: 36415; 76856; 80053; 81003; 81015; 81025; 83690; 85025; 85610; 85730; 96374; 99284; J1885

== ENCOUNTER → 2020-03-23 07:33 | Outpatient (CLI) | payer OTHER, SELFPAY ==
--- NOTE | 2020-03-23 08:34 | DI.CT.S_ITS ---
PROCEDURE: CT ABDOMEN PELVIS W CON INDICATIONS: PELVIC PAIN PERINEAL PAIN TECHNIQUE: After the administration of oral and intravenous contrast, 5 mm thick sections acquired from the diaphragms to the symphysis. 5 mm thick coronal and sagittal reformats were performed. For radiation dose reduction, the following was used: automated exposure control, adjustment of mA and/or kV according to patient size. COMPARISON: [facility], , PELVIC COMPLETE, 03/20/2020, 15:44. FINDINGS: Image quality: Excellent. ABDOMEN: Lung bases: Lung bases are clear. Heart size is normal. Solid organs: Liver is normal in size and enhancement. Gallbladder wall is not thickened. Biliary system is non-dilated. Pancreas enhances normally. Spleen is normal in size and enhancement. Incidental note is made of an accessory splenule along the inferior aspect of the primary spleen. No adrenal nodules. Kidneys are normal in size and enhancement, without hydronephrosis. Peritoneum and bowel: In this patient with this given history, scrutiny is given to the sigmoid colon and the left lower quadrant. No significant diverticula formation can be seen. The sigmoid colon is unremarkable. No significant left lower quadrant phlegm a francine changes are seen. Stomach, small bowel, and colon loops are normal in caliber and wall thickness. No free fluid or air. A normal appendix is incidentally noted. Nodes and vessels: No retroperitoneal or mesenteric adenopathy. Aorta and inferior vena cava are normal in caliber. Miscellaneous: No ventral hernias. PELVIS: Genitourinary: Bladder wall thickness is normal. Miscellaneous: No inguinal hernias or adenopathy. An IUD is seen at its expected location. Prominent nabothian cysts can be seen. The uterus appears normal for age. No adnexal masses are seen. Physiologic cystic changes can be seen involving the ovaries. Bones: No suspicious bony lesions. No vertebral body compression fractures. IMPRESSION: Negative for diverticulosis or diverticulitis. No significant left lower quadrant inflammatory changes are seen. Incidental note is made of: IUD Prominent cervical nabothian cysts Normal appendix Dictated by: John Carroll M.D. on 03/23/2020 at 8:30 Approved by: John Carroll M.D. on 03/23/2020 at 8:33
== END ==
PROVIDERS: Family Provider Advanced Practice Midwife; PCP Registered Nurse Diabetes Educator; Referring Provider Registered Nurse; Visit Provider Registered Nurse
DX: R10.2 Pelvic and perineal pain (principal); R10.32 Left lower quadrant pain; N88.8 Other specified noninflammatory disorders of cervix uteri; Z97.5 Presence of (intrauterine) contraceptive device
CPT/HCPCS: 74177; Q9967

== ENCOUNTER → 2020-04-13 15:39 | Outpatient (CLI) | payer OTHER, SELFPAY | PROVIDERS: Family Provider Advanced Practice Midwife; PCP Registered Nurse Diabetes Educator; Referring Provider Internal Medicine; Visit Provider Internal Medicine | DX: Z23 Encounter for immunization (principal) | CPT/HCPCS: 90471; 90686 ==

== ENCOUNTER → 2020-07-12 08:59 | Outpatient (CLI) | payer OTHER, SELFPAY ==
[2020-07-12] MEDS: COVID-19 VACC(MODERNA-1)/PF 100 MCG/0.5 ML VIAL IM (09:04)
== END ==
PROVIDERS: Family Provider Advanced Practice Midwife; PCP Registered Nurse Diabetes Educator; Visit Provider Internal Medicine
DX: Z23 Encounter for immunization (principal)
CPT/HCPCS: 0011A; 91301

== ENCOUNTER → 2020-08-08 09:02 | Outpatient (CLI) | payer OTHER, SELFPAY ==
[2020-08-08] MEDS: COVID-19 VACC #2, MRNA(MOD) 100 MCG/0.5 ML VIAL IM (09:06)
== END ==
PROVIDERS: Family Provider Advanced Practice Midwife; PCP Registered Nurse Diabetes Educator; Visit Provider Internal Medicine
DX: Z23 Encounter for immunization (principal)
CPT/HCPCS: 0012A; 91301

== ENCOUNTER → 2020-09-06 08:23 | Outpatient (CLI) | payer OTHER, SELFPAY ==
--- NOTE | 2020-09-06 08:24 | DI.RAD.S_ITS ---
PROCEDURE: FL BARIUM SWALLOW INDICATIONS: dysphagia COMPARISON: None. FINDINGS: Function: There is normal esophageal peristalsis. No elicited gastroesophageal reflux. Morphology: Air-contrast images demonstrate normal mucosal morphology. Single contrast views show no esophageal strictures, extrinsic mass effects, or diverticula. Limited images of the stomach demonstrate normal appearance. IMPRESSION: Source of dysphagia is not seen. No sign of dysmotility or esophageal stricture, or mass. No reflux found. Dictated by: José Rose M.D. on 09/06/2020 at 10:16 Approved by: José Rose M.D. on 09/06/2020 at 10:17
== END ==
PROVIDERS: Family Provider Advanced Practice Midwife; PCP Registered Nurse Diabetes Educator; Referring Provider Registered Nurse; Visit Provider Registered Nurse
DX: R13.10 Dysphagia, unspecified (principal)
CPT/HCPCS: 74220

== ENCOUNTER → 2021-01-26 08:01 | Outpatient (CLI) | payer OTHER, SELFPAY ==
[2021-01-26 08:32] LABS: Hematocrit 41.4 % (36-46); Mean Corpuscular HGB Conc 33.9 % (30-36); Mean Corpuscular Hemoglobin 31.9 PG (26-34); Mean Corpuscular Volume 94.2 fL (80-100); Platelet Count 271 X10^3/uL (150-400); Red Cell Distribution Width 12.8 % (11.6-14.8); White Blood Cell Count 5.9 X10^3/uL (4.5-11.0)
[2021-01-26 08:47] LABS: Alanine Aminotransferase 21 IU/L (<35); Albumin 4.6 g/dL (3.5-5.0); Albumin Globulin Ratio 1.4 (1.0-2.8); Alkaline Phosphatase 43 U/L (38-126); Aspartate Aminotransferase 30 IU/L (14-36); BUN Creatinine Ratio 22.6 (6-22); Bilirubin Total 0.9 mg/dL (0.2-1.3); Blood Urea Nitrogen 14 mg/dL (7-17); Calcium 9.3 mg/dL (8.4-10.2); Carbon Dioxide 26 mmol/L (22-32); Chloride 104 mmol/L (98-107); Cholesterol 195 mg/dL (140-199); Estimated Glomerular Filt Rate > 60.0 mL/min (>60); Globulin 3.4 g/dL (1.7-4.1); Glucose 91 mg/dL (70-100); HDL Cholesterol 52 mg/dL (40-60); HEMOLYSIS < 15 (0-50); LDL Cholesterol Calculated 131 mg/dL (<100); Potassium 4.4 mmol/L (3.4-5.1); Sodium 138 mmol/L (137-145); Triglycerides 60 mg/dL (35-150)
[2021-01-26 09:29] LABS: TSH w/ Reflex to FT4 0.99 uIU/mL (0.47-4.68)
== END ==
PROVIDERS: Family Provider Advanced Practice Midwife; PCP Registered Nurse Diabetes Educator; Referring Provider Registered Nurse Diabetes Educator; Visit Provider Registered Nurse Diabetes Educator
DX: E78.00 Pure hypercholesterolemia, unspecified (principal); R79.89 Other specified abnormal findings of blood chemistry; Z86.32 Personal history of gestational diabetes
CPT/HCPCS: 36415; 80053; 80061; 83036; 84443; 85027

== ENCOUNTER → 2021-05-10 17:28 | Outpatient (CLI) | payer OTHER, SELFPAY | PROVIDERS: Family Provider Advanced Practice Midwife; PCP Registered Nurse Diabetes Educator; Referring Provider Internal Medicine; Visit Provider Internal Medicine | DX: Z23 Encounter for immunization (principal) | CPT/HCPCS: 90471; 90686 ==

== ENCOUNTER → 2021-05-18 14:59 | Outpatient (CLI) | payer OTHER, SELFPAY ==
[2021-05-18] MEDS: COVID-19 VACC #3, MRNA(MOD) 50 MCG/0.25 ML VIAL IM (15:03)
== END ==
PROVIDERS: Family Provider Advanced Practice Midwife; PCP Registered Nurse Diabetes Educator; Visit Provider Internal Medicine
DX: Z23 Encounter for immunization (principal)
CPT/HCPCS: 0013A; 91301

== ENCOUNTER → 2021-05-21 10:48 | Outpatient (CLI) | payer OTHER, SELFPAY ==
--- NOTE | 2021-05-21 10:52 | DI.US.S_ITS ---
PROCEDURE: US OB <= 14 WEEKS FETUS INDICATIONS: EVAL LLQ PAIN, POS TEST. R/O ECTOPIC OUTSIDE/PRIOR DATING DATA: Last menstrual period (LMP): 03/07/2021? LMP-based estimated date of delivery (MARIVEL): 12/12/2021. First dating scan (date and location): 05/21/2021. Estimated date of delivery (MARIVEL) from first dating scan: Approximately 01/15/2022 based on mean gestational sac diameter. TECHNIQUE: Real-time scanning was performed of the fetus and maternal pelvic organs, with image documentation. Endovaginal scanning was also performed to better visualize the fetus and maternal ovaries. COMPARISON: [facility], CT, CT ABDOMEN PELVIS W CON, 03/23/2020, 8:32. FINDINGS: Mean gestational sac diameter 1.1 cm corresponding to estimated gestational age of 5 weeks 6 days. A yolk sac is seen. Embryo: Not seen at this time. Heart rate: Not seen at this time. Measurement variability in dating: +/- 4 weeks by LMP, +/- 7 days by mean sac diameter (use before 6 weeks gestation if crown-rump length not able to be measured), +/- 5 days by crown-rump length (up to 8 weeks 6 days gestation), +/- 7 days by crown-rump length (up to 13 weeks 6 days gestation). Maternal organs: Left anechoic ovarian cyst measuring 4.4 x 3.9 x 3.8 cm. Suspect adjacent left corpus luteum. Probable calcified anterior uterine fibroid measuring 0.4 cm. IMPRESSION: 1. Intrauterine at approximately 5 weeks 6 days based on today's MGSD. Yolk sac is seen. Fairway-rump length and cardiac motion is not detected at this time. 2. No perigestational hemorrhage. 3. Anechoic left ovarian cyst measuring 4.4 cm. Recommend short-term follow-up OB ultrasound to document the crown-rump length. Dictated by: Alexander Escobar M.D. on 05/21/2021 at 13:25 Approved by: Alexander Escobar M.D. on 05/21/2021 at 13:29
[2021-05-21 12:16] LABS: HCG Quantitative /Beta subunit 14357 mIU/mL
== END ==
PROVIDERS: Family Provider Advanced Practice Midwife; PCP Registered Nurse Diabetes Educator; Referring Provider Registered Nurse Diabetes Educator; Visit Provider Registered Nurse Diabetes Educator
DX: Z32.01 Encounter for pregnancy test, result positive (principal); R10.2 Pelvic and perineal pain; R10.32 Left lower quadrant pain; Z3A.01 Less than 8 weeks gestation of pregnancy
CPT/HCPCS: 36415; 76801; 76817; 84702

== ENCOUNTER → 2021-10-18 14:08 | Outpatient (CLI) | payer OTHER, SELFPAY ==
[2021-10-18 15:02] LABS: COVID19 -Nasal RAPID Negative (Negative)
== END ==
PROVIDERS: Family Provider Advanced Practice Midwife; PCP Registered Nurse Diabetes Educator; Visit Provider Specialist
DX: Z01.812 Encounter for preprocedural laboratory examination (principal); Z20.822 Contact with and (suspected) exposure to COVID-19
CPT/HCPCS: 87635

== ENCOUNTER 2021-10-19 06:49 | Day surgery (SDC) | payer OTHER, SELFPAY ==
[2021-10-17 14:57] VITALS: BMI 24.5
--- NOTE | 2021-10-19 | PATH_ITS ---
[facility] Accession Number: [id number] . 01 Material submitted: . fallopian tube - BILATERAL FALLOPIAN TUBES . 02 Diagnosis: Bilateral Fallopian Tubes, Sterilization: Bilateral fallopian tube segments. No evidence of neoplasm. MRV 10/24/2021 1747 Local . 02 Electronically signed: . Delmi Fletcher MD, Pathologist NPI- [id number] . 01 Gross description: . The specimen is received in formalin, labeled bilateral fallopian tubes, and consists of one intact fimbriated fallopian tube measuring 7.0 x 0.6 cm, and one fragmented fimbriated fallopian tube measuring 6.0 x 0.5 cm. Sectioning reveals stellate patent lumens with no gross abnormalities. The specimen is representatively submitted as follows: . A1: Entire fimbria and dermatology sales representative cross sections of fragmented fallopian tube. A2: Entire fimbria and dermatology sales representative cross sections of intact fallopian tube. ([id number]) /MRV 10/23/2021 1736 Local . 02 Pathologist provided ICD-10: Z30.2 . 02 CPT . 605708 Specimen Comment: A courtesy copy of this report has been sent to [phone] Performed at: 01 [facility] [address], [place], [place] [id number] MD Hugo Leo MD Phone: [phone] Performed at: [address] [facility] [address] [place], [place] [id number] MD Delmi Fletcher MD Phone: [phone]
[2021-10-19 07:12] VITALS: BP 113/77; PULSE 94; RESP 16; TEMP 36.9; O2SAT 99; BMI 24.5
[2021-10-19] MEDS: LACTATED RINGERS 1,000 ML 100 ML IV (07:26)
--- NOTE | 2021-10-19 07:31 | PM.PREOP ---
Pre-operative Note COVID-19 COVID-19 status: Negative Result date/Date tested (Pos, Neg/Pending): 10/18/21 Interval Note History & Physical reviewed/Exam performed by Physician: Yes Changes to H&P: No
--- NOTE | 2021-10-19 07:59 | SUR.OPER ---
Lithotomy on padded OR bed, head on pillow, arms secured on padded arm boards at <90 degrees abduction. Legs secured in padded yellow fins stirrups.
[2021-10-19] MEDS: BUPIVACAINE 0.5% (PF) 30 ML, EPINEPHrine 0.15 MG INJ (08:08)
[2021-10-19 08:30] VITALS: BP 142/92; PULSE 116; RESP 13; TEMP 36.5; O2SAT 100
--- NOTE | 2021-10-19 08:34 | P.OP_ITS ---
Operative Date/Time/Diagnoses Date of procedure: 10/19/21 Time of procedure: 08:34 Pre-op diagnosis: Sterilization Post-op diagnosis: same Procedure & Clinicians Procedure: laparoscopic bilateral salpingectomy Same procedure as scheduled: Yes Indications: patient requesting sterilization Surgeon: Janis Willson Click Yes if Unassisted: Yes Anesthesia Type: General Operative Notes Findings: Normal tubes, ovaries, uterus, normal bowel surface, normal liver edge, normal- appearing appendix. No internal hernia. No endometriosis. No scar tissue Closure Type: primary Specimen(s): other ( bilateral fallopian tubes) Estimated Blood Loss (mL): 2 Blood products transfused: none Procedure in detail: Patient was brought to the operating room where she underwent general anesthesia. She was placed in low yellowfin stirrups and prepped and draped in usual sterile fashion. Pulsatile stockings were in place and functional. Warming was with blankets. A sponge stick was placed in the vagina. The area of the incisions were injected with half percent Marcaine with epinephrine. An incision was made in the umbilicus with a scalpel and the Verres needle placed in the abdomen. Confirmation of correct placement of the needle was performed by withdrawing on the syringe and then allowing fluid to fall freely through the needle. The abdomen was insufflated to 4 L of CO2. A 5 mm trocar was placed under direct visualization. 2 other 5 mm trochars were placed in the right and left lower quadrant under direct visualization after incising the skin. There did not appear to be any damage with placement of the trocars. The right fallopian tube was grasped and removed by cauterizing and cutting the mesosalpinx and across the fallopian tube at the junction with the uterus with the PK generator. Same procedure was performed on the left fallopian tube. The tubes were brought up out of the abdomen. Adequate hemostasis was noted. The CO2 was allowed to escape from the abdomen. The trochars were removed. Skin was closed with 4-0 monocryl. The patient went to recovery room in good condition. Complications: none Post-operative Condition: stable Disposition: same day surgery Plan for aftercare: home when awake and stable
[2021-10-19 08:35] VITALS: BP 142/92; PULSE 109; RESP 13; O2SAT 100
[2021-10-19 08:40] VITALS: BP 123/81; PULSE 109; RESP 13; O2SAT 100
[2021-10-19 08:55] VITALS: BP 112/73; PULSE 100; RESP 14; TEMP 37.7; O2SAT 100
[2021-10-19] MEDS: MEPERIDINE 50 MG/ML INJ 12.5 MG IV (08:57)
[2021-10-19 09:11] VITALS: BP 125/73; PULSE 96; RESP 14; TEMP 37.6
== END 2021-10-19 09:31 | disposition home or self-care (01) ==
PROVIDERS: Family Provider Advanced Practice Midwife; PCP Registered Nurse Diabetes Educator; Referring Provider Specialist; Visit Provider Specialist
PROC: 0UT74ZZ Resection of Bilateral Fallopian Tubes, Percutaneous Endoscopic Approach (ICD-10-PCS; CPT 58661; principal; 2021-10-19 07:45)
DX: Z30.2 Encounter for sterilization (principal)
CPT/HCPCS: 58661; 81025; J0171; J1100; J1885; J2175; J2250; J2405; J2704; J3010

== ENCOUNTER → 2022-04-09 08:54 | Outpatient (CLI) | payer OTHER, SELFPAY ==
[2022-04-09 09:40] LABS: Hematocrit 40.8 % (36-46); Hemoglobin 13.7 g/dL (12.0-16.0); Mean Corpuscular HGB Conc 33.5 % (30-36); Mean Corpuscular Hemoglobin 31.3 PG (26-34); Mean Corpuscular Volume 93.3 fL (80-100); Platelet Count 280 X10^3/uL (150-400); Red Blood Cell Count 4.38 X10^6/uL (4.0-5.2); White Blood Cell Count 5.8 X10^3/uL (4.5-11.0)
[2022-04-09 10:06] LABS: Hemoglobin A1C% w Est Avg Glu 5.1 % (4.0-6.0)
[2022-04-09 10:25] LABS: Alanine Aminotransferase 21 IU/L (<35); Albumin 4.6 g/dL (3.5-5.0); Albumin Globulin Ratio 1.3 (1.0-2.8); Alkaline Phosphatase 42 U/L (38-126); Aspartate Aminotransferase 22 IU/L (14-36); Bilirubin Total 0.7 mg/dL (0.2-1.3); Blood Urea Nitrogen 9 mg/dL (7-17); Calcium 8.8 mg/dL (8.4-10.2); Carbon Dioxide 26 mmol/L (22-32); Chloride 102 mmol/L (98-107); Cholesterol 192 mg/dL (140-199); Estimated Glomerular Filt Rate > 60 mL/min (>60); Globulin 3.5 g/dL (1.7-4.1); Glucose 93 mg/dL (70-100); HDL Cholesterol 48 mg/dL (40-60); HEMOLYSIS < 15 (0-50); LDL Cholesterol Calculated 131 mg/dL (<100); Potassium 4.4 mmol/L (3.4-5.1); Sodium 137 mmol/L (137-145); Total Protein 8.1 g/dL (6.3-8.2); Triglycerides 64 mg/dL (35-150)
[2022-04-09 10:47] LABS: TSH w/ Reflex to FT4 1.03 uIU/mL (0.47-4.68)
== END ==
PROVIDERS: Family Provider Advanced Practice Midwife; PCP Registered Nurse Diabetes Educator; Referring Provider Registered Nurse Diabetes Educator; Visit Provider Registered Nurse Diabetes Educator
DX: E78.00 Pure hypercholesterolemia, unspecified (principal); Z86.32 Personal history of gestational diabetes
CPT/HCPCS: 36415; 80053; 80061; 83036; 84443; 85027

== ENCOUNTER → 2022-04-24 08:23 | Outpatient (CLI) | payer OTHER, SELFPAY ==
[2022-04-25 10:01] LABS: Apolipoprotein A-1 139 mg/dL (116-209); Apolipoprotein B 96 mg/dL (<90); Apolipoprotein B/A1 Ratio 0.7 ratio (0.0-0.6)
[2022-04-26 13:17] LABS: Albumin 4.4 g/dL (2.9-4.4); Alpha-1-Globulin 0.2 g/dL (0.0-0.4); Alpha-2-Globulin 0.7 g/dL (0.4-1.0); Gamma Globulin 1.5 g/dL (0.4-1.8); Globulin Total 3.4 g/dL (2.2-3.9); Protein, Total 7.8 g/dL (6.0-8.5)
[2022-04-26 18:13] LABS: ANA Screen, IFA Positive (.)
== END ==
PROVIDERS: Family Provider Advanced Practice Midwife; PCP Registered Nurse Diabetes Educator; Referring Provider Registered Nurse Diabetes Educator; Visit Provider Registered Nurse Diabetes Educator
DX: E78.5 Hyperlipidemia, unspecified (principal); I73.00 Raynaud's syndrome without gangrene; L40.9 Psoriasis, unspecified; T69.1XXA Chilblains, initial encounter; Z82.69 Family history of other diseases of the musculoskeletal system and connective tissue
CPT/HCPCS: 36415; 82172; 84155; 84165; 86038

== ENCOUNTER → 2022-05-24 11:00 | Outpatient (CLI) | payer OTHER, SELFPAY | PROVIDERS: Family Provider Advanced Practice Midwife; PCP Registered Nurse Diabetes Educator; Referring Provider Internal Medicine; Visit Provider Internal Medicine | DX: Z23 Encounter for immunization (principal) | CPT/HCPCS: 90471; 90686 ==

== ENCOUNTER → 2023-05-16 08:34 | Outpatient (CLI) | payer OTHER, SELFPAY | PROVIDERS: Family Provider Advanced Practice Midwife; PCP Registered Nurse Diabetes Educator; Referring Provider Family Medicine; Visit Provider Family Medicine | DX: Z23 Encounter for immunization (principal) | CPT/HCPCS: 90471; 90686 ==

== ENCOUNTER → 2024-05-01 17:45 | Outpatient (CLI) | payer BC, SELFPAY | PROVIDERS: Family Provider Advanced Practice Midwife; PCP Registered Nurse Diabetes Educator; Referring Provider Internal Medicine; Visit Provider Internal Medicine | DX: Z23 Encounter for immunization (principal) | CPT/HCPCS: 90471; 90656 ==

== ENCOUNTER 2024-07-22 09:05 | Emergency (ER) | payer BC, SELFPAY ==
[2024-07-22 09:14] VITALS: BP 130/76; PULSE 103; RESP 22; TEMP 36.4; O2SAT 100; BMI 24.3
--- NOTE | 2024-07-22 09:20 | DI.RAD.S_ITS ---
PROCEDURE: XR TIBIA FIBULA LT 2V INDICATIONS: pain under knee TECHNIQUE: 2 views of the tibia and fibula were acquired. COMPARISON: None. FINDINGS: Bones: No acute fractures or dislocations. No suspicious bony lesions. Soft tissues: No suspicious soft tissue calcifications. IMPRESSION: No acute osseous abnormality. If there is continued clinical concern or persistent symptoms, repeat radiographs or cross-sectional imaging (e.g. CT, MRI) may be helpful for further evaluation. Approved by: Gil Maldonado M.D. on 07/22/2024 at 9:37
[2024-07-22] MEDS: ACETAMINOPHEN 325 MG TABLET 650 MG PO (09:22)
--- NOTE | 2024-07-22 11:19 | ED_ITS ---
HPI - Extremity Injury (Lower) <Mariely Rushing PA-C - Last Filed: 07/22/24 19:24> General Chief Complaint: Extremity Injury, Lower Stated Complaint: shifted while kneeling, heard cracking lvl 8px Time Seen by Provider: 07/22/24 11:19 Mode of arrival: Wheelchair History of Present Illness HPI Narrative: Ms. Tenorio is a pleasant 39-year-old female with a past medical history of PTSD, dyslipidemia who presents to the emergency department for pain below the left knee that occurred suddenly while she was shifting on a bent knee. Patient states she had immediate sudden 10/10 pain and felt like her kneecap might have been on the left side of her knee. Reports that she was unable to walk on the knee however when she was in the emergency department waiting room getting her x-ray done and they had her strain her leg she felt like the knee ?popped? back into place and the pain has gone down significantly. She also received Tylenol which does help the pain. She is now able to weightbear and walk on the knee. Denies any other injuries. Denies history of problems with the left knee. Related Data Home Medications Medication Instructions Recorded Confirmed cholecalciferol (vitamin D3) 1 tab PO DAILY 07/01/19 12/20/22 Previous Rx's Medication Instructions Recorded clobetasol 0.05 % scalp solution 1 applictn topical BID #50 mL 01/05/20 bupropion HCl 150 mg 24 hr tablet, 150 mg PO QAM #30 tabs 06/22/24 extended release Allergies Allergy/AdvReac Type Severity Reaction Status Date / Time No Known Drug Allergies Allergy Verified 07/22/24 09:14 Review of Systems <Mariely Rushing PA-C - Last Filed: 07/22/24 19:24> Review of Systems ROS Unobtainable: All systems reviewed & are unremarkable except as noted in HPI and below Patient History <Mariely Rushing PA-C - Last Filed: 07/22/24 19:24> Medical History Dyslipidemia Elevated LDL cholesterol level History of gestational diabetes Psoriasis Social History household members: spouse Smoking Status: Never smoker alcohol intake: current Smoking Status: Never smoker alcohol intake frequency: a few times a week Exam <LORE Bertrand Last Filed: 07/22/24 19:24> Narrative Exam Narrative: GENERAL: 39 year old patient appears stated age. Well-developed patient, in no acute distress. HEAD: Atraumatic. Normocephalic. NECK: Trachea midline. Cervical ROM intact. CARDIOVASCULAR: Regular rate and rhythm. Strong DP and PT pulses bilaterally. Brisk capillary refill on left toes. RESPIRATORY: ?Nonlabored respirations. ?Speaking in clear, full sentences. ? EXTREMITIES: Reports mild subjective anterior left-sided left knee pain. Full range of motion of left knee. No swelling, erythema, effusion. Negative anterior drawer test. 5/5 bilateral knee flexion and extension strength. NEURO: AOx3. ?Clear speech. ?Moves all 4 extremities appropriately. Ambulates independently. Sensation intact to light touch on bilateral lower extremities. SKIN: No rash or erythema of visible areas Initial Vital Signs Initial Vital Signs: Vital Signs Temperature 97.5 F L 07/22/24 09:14 Pulse Rate 103 H 07/22/24 09:14 Respiratory Rate 07/22/24 09:14 Blood Pressure 130/76 07/22/24 09:14 Pulse Oximetry 100 07/22/24 09:14 Oxygen Delivery Method Room Air 07/22/24 09:14 <Mary Jo Carbajal DO - Last Filed: 07/25/24 07:25> Initial Vital Signs Initial Vital Signs: Vital Signs Temperature 97.5 F L 07/22/24 09:14 Pulse Rate 103 H 07/22/24 09:14 Respiratory Rate 07/22/24 09:14 Blood Pressure 130/76 07/22/24 09:14 Pulse Oximetry 100 07/22/24 09:14 Oxygen Delivery Method Room Air 07/22/24 09:14 Course <LORE Bertrand Last Filed: 07/22/24 19:24> Orders Ordered: Discontinued Medications Acetaminophen (Acetaminophen 325 Mg Tablet) 650 mg PO NOW ONE Stop: 07/22/24 09:20 Last Admin: 07/22/24 09:22 Dose: 650 mg Documented By: RENE Ibuprofen (Ibuprofen 400 Mg Tablet) 400 mg PO NOW ONE Stop: 07/22/24 11:31 Last Admin: 07/22/24 11:45 Dose: 400 mg Documented By: RENE(2) Vital Signs Vital signs: Vital Signs - 8 hr 07/22/24 09:14 Temperature 97.5 F L Pulse Rate 103 H Respiratory Rate 22 Blood Pressure 130/76 Pulse Oximetry 100 Oxygen Delivery Method Room Air <Mary Jo Carbajal DO - Last Filed: 07/25/24 07:25> Orders Ordered: Discontinued Medications Acetaminophen (Acetaminophen 325 Mg Tablet) 650 mg PO NOW ONE Stop: 07/22/24 09:20 Last Admin: 07/22/24 09:22 Dose: 650 mg Documented By: RENE Ibuprofen (Ibuprofen 400 Mg Tablet) 400 mg PO NOW ONE Stop: 07/22/24 11:31 Last Admin: 07/22/24 11:45 Dose: 400 mg Documented By: RENE(2) Vital Signs Vital signs: Vital Signs - 8 hr 07/22/24 09:14 Temperature 97.5 F L Pulse Rate 103 H Respiratory Rate 22 Blood Pressure 130/76 Pulse Oximetry 100 Oxygen Delivery Method Room Air MDM - Extremity Injury (Lower) <Mariely Rushing PA-C - Last Filed: 07/22/24 19:24> Medical Records Attestation: I reviewed the patient's medical records. Imaging Data Left Tibia/Fibula X-Ray: Radiologist's Impression: PROCEDURE: XR TIBIA FIBULA LT 2V INDICATIONS: pain under knee TECHNIQUE: 2 views of the tibia and fibula were acquired. COMPARISON: None. FINDINGS: Bones: No acute fractures or dislocations. No suspicious bony lesions. Soft tissues: No suspicious soft tissue calcifications. IMPRESSION: No acute osseous abnormality. If there is continued clinical concern or persistent symptoms, repeat radiographs or cross-sectional imaging (e.g. CT, MRI) may be helpful for further evaluation. [facility] Narrative Medical decision making narrative: 39-year-old female with a past medical history of PTSD, dyslipidemia who presents to the emergency department for pain below the left knee that occurred suddenly while she was shifting on a bent knee. Her contributes to the history. Differential diagnosis includes but is not limited to left knee patellar dislocation, bursitis, tendonitis, left knee sprain, strain, fracture, etc. On exam patient is in no acute distress, nontoxic appearing. States that prior to my evaluation her knee ?popped? back into place and pain was relieved. Tylenol was given in triage and tibia/fibula x-ray was obtained in triage. Left lower extremity is neurovascularly intact with full range of motion and strength of the knee and she ambulates independently. X-ray reveals no acute osseous abnormalities. No gross reproducible joint laxity on exam. Discussed with the patient Waldemar wrap versus knee immobilizer, she would prefer Waldemar wrap at this time. She was provided with crutches if needed however she does feel comfortable weight-bearing. Recommended ibuprofen/Tylenol and rice therapy in addition to follow up with Orthopedics for worsening or persistent pain. We discussed ER return precautions and follow up with PCP. She verbalized understanding of all information is agreeable to the plan. She is stable for discharge home. Discharge Plan Departure Patient Disposition: Home Clinical Impression: Left knee sprain Qualifiers: Encounter type: initial encounter Involved ligament of knee: unspecified ligament Qualified Code(s): S83.92XA - Sprain of unspecified site of left knee, initial encounter Instructions: DI for Knee Sprain Activity Restrictions/Additional Instructions: Today you were evaluated for left knee pain. Your x-ray does not show any acute bony fractures. Concern for possible knee sprain, bursitis, or patellar dislocation/relocation. If you have persistent or worsening pain please follow up with Orthopedics otherwise please follow up with your primary care doctor. [facility] Orthopedics: [phone]. You may call to schedule an appointment with one of the orthopedic doctors for further evaluation/imaging. Please take Ibuprofen (Motrin/Advil) or Acetaminophen (Tylenol) for pain. These are available over the counter. You may take Ibuprofen 600 mg every 8 hours with food for pain. You may also take Acetaminophen 650 mg every 4-6 hours for pain. Do not exceed 3000 mg of Tylenol a day as this can cause liver damage. Do not drink alcohol with either of these medications. Please use RICE therapy for your pain in addition to ibuprofen/acetaminophen. Rest the painful area. Ice the area of pain/swelling for at least 15 minutes, 4x a day. Compress the area of swelling using a brace, wrap, or splint if applied. Elevate the painful or swollen extremity by supporting it above the level of the heart with pillows when sitting or laying. Please follow up with your primary care doctor within the next 2-3 days for ER follow-up. (If you do not have a PCP you can call [phone]. ?to schedule an appointment with an [facility] Primary Care Provider) IF YOU DEVELOP ANY NEW OR WORSENING SYMPTOMS, RETURN TO THE ER! Please read the attached instructions, they highlight more specific treatments and interventions for you at home. Thank you for letting me participate in your care, Mariely Rushing PA-C Prescriptions: No Action cholecalciferol (vitamin D3) 1 tab PO DAILY Patient Comments: stopped for summer bupropion HCl 150 mg tablet extended release 24 hr 150 mg PO QAM Qty: 30 3RF clobetasol 0.05 % solution 1 applictn TOP BID Qty: 50 1RF Referrals: Jesús Hernandez ARNP [Primary Care Provider] - Stand Alone Forms: Patient Portal/API/Survey, Work Release Note ED Sign-out <Mary Jo Carbajal DO - Last Filed: 07/25/24 07:25> Cosign ED Attending Cosignature Attestation: I was available for consultation.
[2024-07-22] MEDS: IBUPROFEN 400 MG TABLET PO (11:45)
== END 2024-07-22 11:54 | disposition home or self-care (01) ==
PROVIDERS: Emergency Provider Physician Assistant; Family Provider Advanced Practice Midwife; PCP Registered Nurse Diabetes Educator
DX: S83.92XA Sprain of unspecified site of left knee, initial encounter (principal); X58.XXXA Exposure to other specified factors, initial encounter
CPT/HCPCS: 73590; 99283

== ENCOUNTER → 2024-08-19 06:54 | Outpatient (CLI) | payer BC, SELFPAY ==
[2024-08-19 08:38] LABS: Hemoglobin A1C% w Est Avg Glu 5.1 % (4.0-6.0)
[2024-08-19 08:39] LABS: Alanine Aminotransferase 23 IU/L (<35); Albumin 4.7 g/dL (3.5-5.0); Albumin Globulin Ratio 1.5 (1.0-2.8); Alkaline Phosphatase 48 U/L (38-126); Aspartate Aminotransferase 25 IU/L (14-36); BUN Creatinine Ratio 20.3 (6-22); Bilirubin Total 0.5 mg/dL (0.2-1.3); Blood Urea Nitrogen 13 mg/dL (7-17); Calcium 9.5 mg/dL (8.4-10.2); Carbon Dioxide 24 mmol/L (22-32); Chloride 103 mmol/L (98-107); Cholesterol 250 mg/dL (140-199); Estimated Glomerular Filt Rate > 60 mL/min (>60); Globulin 3.2 g/dL (1.7-4.1); Glucose 98 mg/dL (70-100); HDL Cholesterol 52 mg/dL (40-60); HEMOLYSIS < 15 (0-50); LDL Cholesterol Calculated 171 mg/dL (<100); Potassium 5.1 mmol/L (3.4-5.1); Sodium 137 mmol/L (137-145); Total Protein 7.9 g/dL (6.3-8.2); Triglycerides 136 mg/dL (35-150)
[2024-08-19 08:40] LABS: Add Manual Diff / Slide Review NO; Basophils Absolute Auto 100 /uL (0-100); Eosinophils Absolute Auto 100 /uL (0-450); Eosinophils Percent Auto 0.8 % (2-4); Hematocrit 41.6 % (36-46); Lymphocytes Absolute Auto 1800 /uL (1100-4500); Mean Corpuscular HGB Conc 33.7 % (30-36); Mean Corpuscular Hemoglobin 31.5 PG (26-34); Mean Corpuscular Volume 93.4 fL (80-100); Monocytes Absolute Auto 500 /uL (0-900); Neutrophils Absolute Auto 5100 /uL (1500-7000); Neutrophils Percent Auto 67.2 % (50-75); Platelet Count 329 X10^3/uL (150-400); Red Blood Cell Count 4.45 X10^6/uL (4.0-5.2); Red Cell Distribution Width 13.1 % (11.6-14.8); White Blood Cell Count 7.5 X10^3/uL (4.5-11.0)
== END ==
PROVIDERS: Family Provider Advanced Practice Midwife; PCP Family Medicine; Referring Provider Family Medicine; Visit Provider Family Medicine
DX: Z00.00 Encounter for general adult medical examination without abnormal findings (principal); Z13.1 Encounter for screening for diabetes mellitus; Z13.220 Encounter for screening for lipoid disorders; E78.5 Hyperlipidemia, unspecified; E78.00 Pure hypercholesterolemia, unspecified; Z86.32 Personal history of gestational diabetes
CPT/HCPCS: 36415; 80053; 80061; 83036; 85025

== ENCOUNTER → 2025-01-20 08:13 | Outpatient (CLI) | payer BC, SELFPAY | PROVIDERS: Family Provider Advanced Practice Midwife; PCP Family Medicine; Referring Provider Family Medicine; Visit Provider Family Medicine | DX: E78.00 Pure hypercholesterolemia, unspecified (principal) | CPT/HCPCS: 36415; 83721 ==